=== PATIENT | male | born 1960 | race Caucasian/White ===

== ENCOUNTER 2025-09-24 14:50 | Emergency (ER) | payer OTHER, BC, MEDICARE | END 2025-09-24 16:53 | disposition home or self-care (01) | LOC: VM.ED 14:50 | DX: S63.501A Unspecified sprain of right wrist, initial encounter (principal); M25.521 Pain in right elbow; Z79.899 Other long term (current) drug therapy; W19.XXXA Unspecified fall, initial encounter | CPT/HCPCS: 73080-RT; 73110-RT; 99283 ==